=== PATIENT | female | born 1975 | race Caucasian/White ===

== ENCOUNTER 2017-10-14 23:30 | Inpatient (IN) | payer SELFPAY ==
[~2017-10-14] VITALS: Ht 167.6 cm; Wt 90.7 kg
[2017-10-14 23:35] VITALS: Ht 167.6 cm; Wt 90.7 kg
[2017-10-15 00:40] LABS: BASOPHIL % 0.2 % (0-2)
[2017-10-15 00:53] LABS: PLATELET COUNT 501 x10^3mcL (130-400)
[2017-10-15 00:57] LABS: ALBUMIN 4.4 g/dL (3.4-5.0); ALKALINE PHOSPHATASE 121 U/L (46-116); ALT/SGPT 84 U/L (14-59); AST/SGOT 47 U/L (15-37); BILIRUBIN TOTAL 0.2 mg/dL (0.20-1.00); CALCIUM 9.4 mg/dL (8.5-10.1); CARBON DIOXIDE 22.2 mmol/L (21-32); CHLORIDE SERUM 96 mmol/L (98-107); CREATININE SERUM 0.9 mg/dL (0.6-1.0); FREE T4 1.15 ng/dL (0.76-1.46); GFR1 > 60 mL/min; GLUCOSE SERUM 106 mg/dL (74-106); SODIUM SERUM 127 mmol/L (136-145)
[2017-10-15 00:59] LABS: TOTAL PROTEIN, SERUM 8.8 g/dL (6.4-8.2)
[2017-10-15 01:01] LABS: POTASSIUM SERUM 7.7 mmol/L (3.5-5.1)
[2017-10-15] MEDS ORDERED: MILLIPRED10 MG/5 ML PO (01:12)
[2017-10-15] MEDS ORDERED: LEVOTHYROXINE0.1 M2 PO (01:13)
[2017-10-15 02:31] LABS: microscopic required? YES; urine erythrocyte TRACE (NEGATIVE)
[2017-10-15 02:37] LABS: AMPHETAMINE QUAL UR NONE DETECTED (NEG <=1000)
[2017-10-15 02:41] VITALS: BP 132/69
[2017-10-15 03:03] LABS: MAGNESIUM 1.7 mg/dL (1.8-2.4); PHOSPHOROUS 4.1 mg/dL (2.5-4.9)
[2017-10-15 03:04] LABS: CHOLESTEROL/HDL RATIO 4.2
[2017-10-15 06:13] VITALS: BP 101/62
[2017-10-15 06:55] LABS: RED CELL DISTRIBUTION WIDTH 11.9 % (11.5-14.5)
[2017-10-15 07:00] LABS: PLATELET COUNT 420 x10^3mcL (130-400)
[2017-10-15 07:33] LABS: CALCIUM 8.8 mg/dL (8.5-10.1); CARBON DIOXIDE 18.7 mmol/L (21-32); CHLORIDE SERUM 101 mmol/L (98-107); GFR1 > 60 mL/min; GLUCOSE SERUM 123 mg/dL (74-106); SODIUM SERUM 133 mmol/L (136-145)
[2017-10-15 07:55] LABS: POTASSIUM SERUM 5.7 mmol/L (3.5-5.1)
[2017-10-15 09:54] VITALS: BP 90/62
[2017-10-15 11:54] LABS: BAND NEUTROPHIL 2 % (0-10); BASOPHIL 0 % (0-2); MONOCYTE 2 % (0-7); MYELOCYTE 2 % (0-2); PLATELET MORPHOLOGY PLATELETS INCREASED; SEGMENTED NEUTROPHILS 85 % (37-75); rbc morphology (normal/abnorm) NORMAL (NORMAL)
[2017-10-15 15:04] VITALS: BP 110/74
[2017-10-15 15:45] LABS: CALCIUM 9.1 mg/dL (8.5-10.1); CARBON DIOXIDE 22.1 mmol/L (21-32); CHLORIDE SERUM 98 mmol/L (98-107); GFR1 > 60 mL/min; GLUCOSE SERUM 133 mg/dL (74-106); POTASSIUM SERUM 4.5 mmol/L (3.5-5.1); SODIUM SERUM 134 mmol/L (136-145)
[2017-10-15 17:47] VITALS: BP 99/63
[2017-10-15 20:57] VITALS: BP 98/62
[2017-10-16 05:58] VITALS: BP 111/71
[2017-10-16 06:13] LABS: BASOPHIL % 0.1 % (0-2); PLATELET COUNT 388 x10^3mcL (130-400); RED CELL DISTRIBUTION WIDTH 12.9 % (11.5-14.5)
[2017-10-16 06:24] LABS: CALCIUM 8.4 mg/dL (8.5-10.1); CARBON DIOXIDE 26.4 mmol/L (21-32); CHLORIDE SERUM 101 mmol/L (98-107); CREATININE SERUM 0.8 mg/dL (0.6-1.0); GFR1 > 60 mL/min; GLUCOSE SERUM 103 mg/dL (74-106); MAGNESIUM 1.4 mg/dL (1.8-2.4); PHOSPHOROUS 4.2 mg/dL (2.5-4.9); POTASSIUM SERUM 4.4 mmol/L (3.5-5.1); SODIUM SERUM 136 mmol/L (136-145)
[2017-10-16 08:50] VITALS: BP 100/66
[2017-10-16] MEDS ORDERED: PREDNISONE2.5 MG PO (10:39)
[2017-10-16 13:05] VITALS: BP 98/62
[2017-10-16 13:12] VITALS: BP 100/66
== END 2017-10-16 15:45 | disposition home or self-care (01) | DRG 643 ==
LOC: ED 23:30 → DU 10-15 01:26
PROVIDERS: Emergency Medicine; Family Medicine
DX: E27.2 Addisonian crisis (principal); N17.0 Acute kidney failure with tubular necrosis; E87.1 Hypo-osmolality and hyponatremia; E27.40 Unspecified adrenocortical insufficiency; E83.42 Hypomagnesemia; R73.03 Prediabetes; E03.9 Hypothyroidism, unspecified; E87.5 Hyperkalemia; R74.0 Nonspecific elevation of levels of transaminase and lactic acid dehydrogenase [LDH]; Z87.01 Personal history of pneumonia (recurrent); Z90.49 Acquired absence of other specified parts of digestive tract; Z59.0 Homelessness
CPT/HCPCS: 82962; 83880; 84439; 87804; 90658; J0610; J1720; J2405; J2543; J3475; J3490; J7030; J7613; Q0092